=== PATIENT | female | born 1950 | race Caucasian/White ===

== ENCOUNTER 2020-02-03 13:47 | Observation (INO) ==
[2020-02-03] MEDS ORDERED: Isovue-370 500 ML BOTTLE IVP ONE (14:29)
[2020-02-03 14:45] LABS: Basophils # 0.1 K/mcL (0.0-0.2); Basophils % 0.6 %; Eosinophils # 0.1 K/mcL (0.0-0.6); Eosinophils % 1.2 %; Hematocrit 46.6 % (35.3-44.9); Hemoglobin 15.1 g/dL (11.5-15.4); Immature Granulocytes % 0.3 % (0-4); Lymphocytes # 2.2 K/mcL (0.6-4.6); Lymphocytes % 24.5 %; Mean Corpuscular HGB Conc 32.4 g/dL (31.6-35.5); Mean Corpuscular Volume 95.7 fL (83.0-100.0); Monocytes # 0.6 K/mcL (0.0-1.3); Monocytes % 6.8 %; Platelet Count 238 K/mcL (140-400); Red Blood Count 4.87 M/mcL (3.82-4.97); Red Cell Distribution Width 13.3 % (11.5-14.5); Segmented Neutrophils % 66.6 %
[2020-02-03 14:54] LABS: Calcium 9.9 mg/dL (8.6-10.3); Potassium 4.2 mEq/L (3.5-5.1)
[2020-02-03 14:55] LABS: Troponin I 0.03 ng/mL (< 0.04)
[2020-02-03] MEDS ORDERED: 0.9 % Sodium Chloride 1,000 ML IVC ONE (15:09)
[2020-02-03] MEDS ORDERED: *HR* FentaNYL (PF) 100 MCG/2 ML VIAL IVP STA ×2 (18:17→19:31)
[2020-02-03] MEDS ORDERED: Ondansetron 4 MG/2 ML VIAL IVP STA (18:17)
[2020-02-03] MEDS: DilTIAZem 125 MG in D5% in Water 100 ML IVC SCH (18:25)
[2020-02-03] MEDS ORDERED: *HR* Promethazine 25 MG/ML VIAL IVP PRN (20:24)
[2020-02-03] MEDS ORDERED: Naloxone 0.4 MG/ML INJ IVP PRN (20:24)
[2020-02-03] MEDS ORDERED: Perflutren Lipid Microsphere 1.3 ML in 0.9 % Sodium Chloride 8.7 ML IVP PRN (20:28)
[2020-02-03] MEDS ORDERED: *HR* Heparin 5,000 UNIT/ML VIAL IVP ONE (21:10)
[2020-02-03] MEDS ORDERED: *HR* Heparin 5,000 UNIT/ML VIAL IVP PRN ×2 (21:10)
[2020-02-03] MEDS: Heparin 25,000UNIT/250ML 1/2NS 25,000 UNIT/250 ML IV.SOLN IVC SCH (21:35)
[2020-02-03] MEDS: 0.9 % Sodium Chloride 1,000 ML IVC SCH (21:44)
[2020-02-03] MEDS ORDERED: *HR* Dextrose 50 % in Water (Vial) 50 ML VIAL IVP PRN (22:08)
[2020-02-03] MEDS ORDERED: Dextrose Gel 15 GM/37.5 ML TUBE PO PRN ×2 (22:08)
[2020-02-03] MEDS ORDERED: D5% in Water 1,000 ML IVC PRN (22:08)
[2020-02-03] MEDS: Insulin LISPRO 300 UNITS/3 ML VIAL SQ SCH (22:24)
[2020-02-04] MEDS: Acetaminophen 325 MG TABLET PO PRN ×3 (00:27→23:46)
[2020-02-04 04:14] LABS: Basophils % 0.4 %; Eosinophils # 0.2 K/mcL (0.0-0.6); Eosinophils % 2.2 %; Hematocrit 44.3 % (35.3-44.9); Hemoglobin 13.8 g/dL (11.5-15.4); Immature Granulocytes % 0.6 % (0-4); Lymphocytes # 2.5 K/mcL (0.6-4.6); Lymphocytes % 29.5 %; Mean Corpuscular HGB Conc 31.2 g/dL (31.6-35.5); Mean Corpuscular Hemoglobin 29.6 pg (28.0-33.3); Mean Corpuscular Volume 94.9 fL (83.0-100.0); Mean Platelet Volume 9.7 fL (9.4-12.4); Monocytes # 0.6 K/mcL (0.0-1.3); Monocytes % 7.1 %; Platelet Count 214 K/mcL (140-400); Red Blood Count 4.67 M/mcL (3.82-4.97); Red Cell Distribution Width 13.5 % (11.5-14.5); Segmented Neutrophils % 60.2 %; White Blood Count 8.4 K/mcL (4.3-11.1)
[2020-02-04 04:19] LABS: Prothrombin Time 11.7 Seconds (9.4-12.1)
[2020-02-04 04:42] LABS: Albumin 3.5 g/dL (3.5-5.7); Albumin/Globulin Ratio 1.3 (1.1-2.2); Bilirubin,Total 0.3 mg/dL (0.3-1.0); Chol/HDL Ratio 4.5 (0-4.9); Globulin 2.7 g/dL (2.4-3.5); Magnesium 1.5 mg/dL (1.6-2.6); Phosphorous 3.9 mg/dL (2.7-4.5); Total Protein 6.2 g/dL (6.4-8.9); Troponin I 0.04 ng/mL (< 0.04)
[2020-02-04] MEDS: Insulin LISPRO 300 UNITS/3 ML VIAL SQ SCH ×3 (07:43→16:54)
[2020-02-04] MEDS: 0.9 % Sodium Chloride 1,000 ML IVC SCH ×2 (07:43→16:01)
[2020-02-04 07:55] LABS: Estimated Average Glucose 197 mg/dl
[2020-02-04] MEDS ORDERED: tiZANidine 4 MG TABLET PO PRN (09:17)
[2020-02-04] MEDS: FLUoxetine 20 MG CAPSULE PO SCH (10:07)
[2020-02-04] MEDS: DilTIAZem 125 MG in D5% in Water 100 ML IVC SCH (10:13)
[2020-02-04 10:42] LABS: Thyroid Stimulating Hormone 2.047 mcIU/mL (0.340-5.600)
[2020-02-04 10:49] LABS: Triiodothyronine (T3) Total 0.85 ng/mL (0.87-1.78)
[2020-02-04] MEDS: DilTIAZem CD (24hr) 120 MG CAP.ER.24H PO SCH (13:39)
[2020-02-04] MEDS: predniSONE 20 MG TABLET PO SCH (13:39)
[2020-02-04] MEDS ORDERED: Regadenoson 0.4 MG/5 ML SYRINGE IVP ONE (13:40)
[2020-02-04] MEDS ORDERED: Insulin DETEMIR 100 UNIT/ML X5UNITS SQ SCH (21:00)
[2020-02-04] MEDS ORDERED: Gabapentin 300 MG CAPSULE PO SCH (21:00)
[2020-02-04] MEDS ORDERED: *HR* Metoprolol 5 MG/5 ML VIAL IVP ONE (22:14)
[2020-02-04] MEDS: Insulin DETEMIR 100 UNIT/ML X5UNITS SQ SCH (22:27)
[2020-02-04] MEDS: Heparin 25,000UNIT/250ML 1/2NS 25,000 UNIT/250 ML IV.SOLN IVC SCH (23:49)
[2020-02-05] MEDS: 0.9 % Sodium Chloride 1,000 ML IVC SCH ×2 (01:35→09:53)
[2020-02-05 06:42] LABS: Calcium 8.4 mg/dL (8.6-10.3); Magnesium 2.2 mg/dL (1.6-2.6); Phosphorous 3.1 mg/dL (2.7-4.5); Potassium 4.3 mEq/L (3.5-5.1)
[2020-02-05] MEDS: Insulin DETEMIR 100 UNIT/ML X5UNITS SQ SCH (08:27)
[2020-02-05] MEDS: DilTIAZem CD (24hr) 120 MG CAP.ER.24H PO SCH (08:28)
[2020-02-05] MEDS: FLUoxetine 20 MG CAPSULE PO SCH (08:28)
[2020-02-05] MEDS: predniSONE 20 MG TABLET PO SCH (08:28)
[2020-02-05] MEDS: Insulin LISPRO 300 UNITS/3 ML VIAL SQ SCH ×3 (09:54→17:10)
[2020-02-05] MEDS ORDERED: Aspirin Enteric Coated 81 MG Tablet PO SCH (11:45)
[2020-02-05] MEDS ORDERED: 0.9 % Sodium Chloride 1,000 ML IVC SCH (11:45)
[2020-02-05] MEDS ORDERED: Heparin 1,000 UNITS/500 mL 500 ML ONE (12:28)
[2020-02-05] MEDS ORDERED: *HR* Heparin 10,000 UNIT/10 ML VIAL ONE (12:28)
[2020-02-05] MEDS ORDERED: ISOVUE-370 200 ML INFUS..BTL ONE (12:28)
[2020-02-05] MEDS ORDERED: 0.9 % Sodium Chloride 1,000 ML ONE (12:28)
[2020-02-05] MEDS ORDERED: Nitroglycerin 1,000 MCG/10 ML VIAL IV ONE (12:28)
[2020-02-05] MEDS ORDERED: *HR* Midazolam HCl 2 MG/2 ML VIAL ONE (12:51)
[2020-02-05] MEDS ORDERED: *HR* FentaNYL (PF) 100 MCG/2 ML VIAL ONE (12:51)
[2020-02-05 18:03] VITALS: BP 162/81
[2020-02-05] MEDS ORDERED: Apixaban 5 MG TABLET PO SCH (21:00)
== END 2020-02-05 18:33 | disposition home or self-care (01) ==
LOC: 3BNU 13:47 → EMEROOARM 13:47 → SUATTDRO 19:29 → 3BNU 20:08
PROVIDERS: ADMIT Student in an Organized Health Care Education/Training Program; ATTEND Internal Medicine